=== PATIENT | male | born 2000 ===

== ENCOUNTER 2023-08-01 12:51 | Outpatient (REF) | payer OTHER, SELFPAY ==
--- NOTE | ~2023-08-01 | MR_ITS ---
EXAMINATION: MR BRAIN WITHOUT CONTRAST CLINICAL INFORMATION: Concussion without loss of consciousness. COMPARISON: No relevant prior imaging. TECHNIQUE: Multiplanar MR imaging of the brain was performed without contrast. FINDINGS: There is no acute territorial infarct. No pathological magnetic susceptibility artifact. Intracranial vascular flow voids are maintained. There is no intracranial mass effect or midline shift. No abnormal extra-axial collection. Lateral and third ventricles are normal. No hydrocephalus. Midline structures including the cervicomedullary junction are normal. No acute bone marrow signal changes. There is no mastoid or middle ear effusion. No active paranasal sinus disease. Globes and orbits are symmetric. MR/MR head/brain wo con IMPRESSION: Normal brain MRI.
== END 2023-08-01 12:52 | disposition home or self-care (01) ==
LOC: HO.MRI 12:51
PROVIDERS: Visit Provider Family Medicine
DX: S06.0X0A Concussion without loss of consciousness, initial encounter (principal)
CPT/HCPCS: 70551